=== PATIENT | male | born 2000 ===

== ENCOUNTER 2021-11-02 13:45 | Emergency (ER) | payer SELFPAY ==
[2021-11-02 13:59] VITALS: BP 127/74; PULSE 79; RESP 18; TEMP 36.6; O2SAT 100
--- NOTE | 2021-11-02 14:13 | PC.NURSE ---
pt limping out door with female. female with pt states, we're [place] far from home. I thought they were bringing him to a different hospital.
== END 2021-11-03 00:39 | disposition left against medical advice (07) ==
LOC: ANHED 14:25
DX: Z53.21 Procedure and treatment not carried out due to patient leaving prior to being seen by health care provider (principal)
CPT/HCPCS: 99199